=== PATIENT | male | born 1990 | race Caucasian/White ===

== ENCOUNTER 2018-07-05 11:32 | Emergency (ER) | payer BC ==
[~2018-07-05] VITALS: Ht 172.7 cm; Wt 59.0 kg
[2018-07-05 11:48] VITALS: BP 120/56
--- NOTE | 2018-07-05 12:15 | PHYS DOC ---
Past Medical History Past Medical History: No Pertinent History Past Surgical History: No Surgical History Smoking: Less than 1pk/day Alcohol Use: Occasionally Drug Use: None Adult General Chief Complaint Chief Complaint: ANKLE PROBLEM HPI HPI Patient is a 27 year old [male] who presents with [left ankle pain. He sustained an inversion mechanism injury while walking in his driveway approximately midnight last night. Increased pain with movement, increased pain with ambulation. Patient reports the pain is moderate. Improved with rest, worsened with movement. There is no radiation of pain. There are no paresthesias. He also reports that feels better when he is wearing a boot to be able to walk] Review of Systems Review of Systems Constitutional: Denies fever or chills [] Eyes: Denies change in visual acuity, redness, or eye pain [] HENT: Denies nasal congestion or sore throat [] Respiratory: Denies cough or shortness of breath [] Cardiovascular: Denies chest pain or palpitations[] GI: Denies abdominal pain, nausea, vomiting, bloody stools or diarrhea [] : Denies dysuria or hematuria [] Musculoskeletal: Denies other joint pain. Denies any other injury with falling yesterday with this current injury.[] Integument: Denies rash or skin lesions [] Neurologic: Denies headache, focal weakness or sensory changes [] Endocrine: Denies polyuria or polydipsia [] All other systems were reviewed and found to be within normal limits, except as documented in this note. Current Medications Current Medications Current Medications Medications (Trade) Dose Ordered Sig/Ashley Start Time Stop Time Status Last Admin Dose Admin Ibuprofen (Motrin) 800 mg 1X ONCE 07/05/18 12:30 07/05/18 12:31 DC 07/05/18 12:25 800 MG Allergies Allergies Allergies Coded Allergies Type Severity Reaction Last Updated Verified Penicillins Allergy Intermediate Hives 07/05/18 Yes Physical Exam Physical Exam Constitutional: Well developed, well nourished, mild distress, non-toxic appearance. [] HENT: Normocephalic, atraumatic, bilateral external ears normal, oropharynx moist, no oral exudates, nose normal. [] Eyes: PERRLA, EOMI, conjunctiva normal, no discharge. [] Neck: Normal range of motion, no tenderness, supple, no stridor. [] Cardiovascular:Heart rate regular rhythm, no murmur [] Lungs & Thorax: Bilateral breath sounds clear to auscultation [] Abdomen: Bowel sounds normal, soft, no tenderness, no masses, no pulsatile masses. [] Skin: Warm, dry, no erythema, no rash. [] Back: No tenderness, no CVA tenderness. [] Extremities: No cyanosis, no clubbing, ROM intact, no edema. Patient's left ankle shows edema over the lateral malleolus with tenderness to palpation. There is no tenderness to palpation over the fifth metatarsal. No medial malleolus tenderness. Patient has normal dorsi and plantar flexion. Patient is neurovascularly intact. Refills less than 2 seconds. No laxity was noted on exam.[] Neurologic: Alert and oriented X 3, normal motor function, normal sensory function, no focal deficits noted. [] Psychologic: Affect normal, judgement normal, mood normal. [] Current Patient Data Vital Signs Vital Signs Date Time Temp Pulse Resp B/P (MAP) Pulse Ox O2 Delivery O2 Flow Rate FiO2 07/05/18 11:48 97.9 69 16 120/56 (77) 98 Room Air 97.9 EKG EKG [] Radiology/Procedures Radiology/Procedures X-rays obtained of left ankle show no acute fracture or dislocation.[] Course & Med Decision Making Course & Med Decision Making Pertinent Labs and Imaging studies reviewed. (See chart for details) Medical decision making: There is no evidence of fracture, open fracture, dislocation, nor neurovascular compromise. ED course: Patient arrived, was placed in bed, patient tolerated exam well. Patient was given oral pain medication which didn't improve his pain. Patient was transported to and from x-ray without any complications. After return of the x-ray findings immobilization was provided. Patient was discharged neurovascularly intact after the immobilization. Findings were discussed with the patient along with plan. All questions were answered. Patient was discharged in improved condition[] Dragon Disclaimer Dragon Disclaimer This electronic medical record was generated, in whole or in part, using a voice recognition dictation system. Departure Departure Impression: Primary Impression: Left ankle sprain Disposition: HOME, SELF-CARE Condition: GOOD Referrals: NO PCP (PCP) Patient Instructions: Ankle Sprain Additional Instructions: Follow-up with your regular doctor in 2 days. Wear the ankle splint while walking. Return to the ER if worsening pain, swelling, or any other concerns. Scripts Ibuprofen (IBUPROFEN) 800 Mg Tablet 800 MG PO PRN TID PRN for PAIN, #20 TAB take with food or milk to avoid upsetting stomach Prov: ADRIAN HOLDER DO 07/05/18 Problem Qualifiers Primary Impression: Left ankle sprain Encounter type: initial encounter Involved ligament of ankle: anterior talofibular ligament Qualified Codes: S93.492A - Sprain of other ligament of left ankle, initial encounter ADRIAN HOLDER DO Jul 05, 2018 12:15
[2018-07-05] MEDS ORDERED: IBUPROFEN 400 MG TABLET. PO ONE (12:30)
--- NOTE | 2018-07-05 12:47 | RAD ---
ANKLE LEFT 3V (AP, oblique, lateral) INDICATION: TWISTED ANKLE LAST NIGHT, PAIN AND SWELLING TO LATERAL SIDE COMPARISON: None. FINDINGS: No displaced fracture or malalignment. The joint spaces are maintained. Bony mineralization is normal for the patient's age. No significant soft tissue abnormality. No radiopaque foreign body. IMPRESSION: No displaced fracture or malalignment. Electronically signed by: Bryan Vallecillo MD (07/05/2018 12:43 PM) [facility]
[2018-07-05] MEDS ORDERED: IBUP-1060 PO (13:12)
== END 2018-07-05 13:30 | disposition home or self-care (01) ==
LOC: ER 11:32
DX: S93.492A Sprain of other ligament of left ankle, initial encounter (principal); F17.200 Nicotine dependence, unspecified, uncomplicated; Z88.0 Allergy status to penicillin; X58.XXXA Exposure to other specified factors, initial encounter; Y93.01 Activity, walking, marching and hiking; Y92.89 Other specified places as the place of occurrence of the external cause; Y99.8 Other external cause status
CPT/HCPCS: 73610; 99284; L4350